=== PATIENT | male | born 1970 | race Caucasian/White ===

== ENCOUNTER 2017-01-15 17:02 | Emergency (ER) | payer MEDICAID, OTHER ==
[~2017-01-15] VITALS: Ht 165.1 cm; Wt 103.4 kg
[2017-01-15 17:08] VITALS: BP 165/106
[2017-01-15] MEDS ORDERED: LIDOCAINE 1% HCL (LOCAL ANESTH.) INJ 20ML MDV IN ONE (18:45)
[2017-01-15] MEDS ORDERED: cefTRIAXone SOD 1,000 MG VL IM ONE (18:45)
[2017-01-15] MEDS ORDERED: TETANUS-DIPTH-ACEL PERTUSSIS 0.5ML SYRG IM ONE (18:45)
== END 2017-01-15 19:40 | disposition home or self-care (01) ==
LOC: ER 17:09
DX: L02.413 Cutaneous abscess of right upper limb (principal); Z88.6 Allergy status to analgesic agent
CPT/HCPCS: 10060; 73090; 90471; 90715; 96372; 99284; J0696; J2001